=== PATIENT | male | born 1995 | race Caucasian/White ===

== ENCOUNTER 2016-10-12 12:55 | Emergency (ER) | payer OTHER ==
[2016-10-12 13:00] VITALS: BP 112/70; PULSE 77; TEMP 99.3; BMI 30.4
--- NOTE | 2016-10-12 13:09 | PDOC ---
History of Present Illness - General Chief Complaint: Sore Throat Stated Complaint: SORE THROAT Time Seen by Provider: 10/12/16 13:03 History Source: Patient Exam Limitations: No Limitations - History of Present Illness Initial Comments: 21 yo M no PMH presents with throat pain x2 days. He saw a physician yesterday who reassured him, however, then he researched on the internet and became concerned it may be strep throat. He denies any cough. No recent fevers. He states that his throat is painful and irritated. His ears hurt B/L. No difficulty breathing. Past History - Past Medical History Allergies/Adverse Reactions: Allergies Allergy/AdvReac Type Severity Reaction Status Date / Time No Known Allergies Allergy Verified 11/01/11 19:39 Home Medications: Ambulatory Orders No Home Medications 0 dose .ROUTE UTDICT 11/01/11 - Immunization History Immunization Up to Date: Yes - Psycho/Social/Smoking Cessation Hx Anxiety: No Suicidal Ideation: No Smoking Status: No Smoking History: Never smoked Number of Cigarettes Smoked Daily: 0 Hx Alcohol Use: Yes (OCCASIONAL) Drug/Substance Use Hx: No Substance Use Type: None Review of Systems - Review of Systems Able to Perform ROS?: Yes Comments:: GENERAL/CONSTITUTIONAL: No fever or chills. No weakness. HEAD, EYES, EARS, NOSE AND THROAT: No change in vision. No ear pain or discharge. +Sore throat. CARDIOVASCULAR: No chest pain or shortness of breath. RESPIRATORY: No cough, wheezing, or hemoptysis. GASTROINTESTINAL: No nausea, vomiting, diarrhea or constipation. GENITOURINARY: No dysuria, frequency, or change in urination. MUSCULOSKELETAL: No joint or muscle swelling or pain. No neck or back pain. SKIN: No rash NEUROLOGIC: No headache, vertigo, loss of consciousness, or change in strength/ sensation. ENDOCRINE: No increased thirst. No abnormal weight change. HEMATOLOGIC/LYMPHATIC: No anemia, easy bleeding, or history of blood clots. ALLERGIC/IMMUNOLOGIC: No hives or skin allergy. *Physical Exam - Vital Signs Last Vital Signs Temp Pulse Resp BP Pulse Ox 99.3 F 77 15 112/70 98 10/12/16 12:56 10/12/16 12:56 10/12/16 12:56 10/12/16 12:56 10/12/16 12:56 - Physical Exam Comments: GENERAL: Awake, alert, and fully oriented, in no acute distress HEAD: No signs of trauma EYES: PERRLA, EOMI, sclera anicteric, conjunctiva clear ENT: Auricles normal inspection, hearing grossly normal, nares patent, oropharynx erythematous without exudates. Slight bulging of the TMs B/L, clear fluid. No perforation, no erythema. Moist mucosa NECK: Normal ROM, supple. +Anterior cervical lymphadenopathy. No JVD or masses LUNGS: Breath sounds equal, clear to auscultation bilaterally. No wheezes, and no crackles HEART: Regular rate and rhythm, normal S1 and S2, no murmurs, rubs or gallops ABDOMEN: Soft, nontender, normoactive bowel sounds. No guarding, no rebound. No masses EXTREMITIES: Normal range of motion, no edema. No clubbing or cyanosis. No cords , erythema, or tenderness NEUROLOGICAL: Cranial nerves II through XII grossly intact. Normal speech, normal gait SKIN: Warm, Dry, normal turgor, no rashes or lesions noted. Medical Decision Making - Medical Decision Making Symptoms are likely viral. Patient only meets one of the centor criteria. Rapid strep negative. Will treat symptomatically. Culture pending. *DC/Admit/Observation/Transfer Diagnosis at time of Disposition: Viral pharyngitis - Discharge Dispostion Disposition: HOME Condition at time of disposition: Stable Admit: No
[2016-10-12] MEDS ORDERED: IBUPROFEN 600 MG TABLET (FP) PO ONE ×2 (13:13→13:28)
[2016-10-12] MEDS ORDERED: DEXAMETHASONE 4 MG TABLET (FP) PO ONE (14:06)
[2016-10-12] MEDS ORDERED: DEXAMETHASONE 4 MG TABLET (FP) ONE (14:11)
--- NOTE | 2016-10-16 16:09 | PDOC ---
Patient Follow-up (Call Back) - Post ED Follow - Up Condition at time of discharge: Stable Disposition at time of original discharge: HOME - Disposition Additional Instructions/Notes: Attempted to contact patient on his primary phone number, but there was a message that the number was not available. I contacted on his secondary contact (esvin Rin Brii) instructing them to call back the ED for abnormal lab results- positive strep culture. I have sent rx to his pharmacy already. Awaiting callback to let him know to pick it up.
== END 2016-10-12 14:17 | disposition home or self-care (01) ==
LOC: FER 12:55
DX: J02.8 Acute pharyngitis due to other specified organisms (principal); B97.89 Other viral agents as the cause of diseases classified elsewhere
CPT/HCPCS: 87070; 87077; 87430; 99281-25

== ENCOUNTER 2016-12-10 22:57 | Emergency (ER) | payer OTHER ==
[2016-12-10 23:10] VITALS: BP 149/87; PULSE 75; TEMP 98.2; BMI 30.4
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
[2016-12-10] MEDS ORDERED: DIPHTH,PERTUSS(ACELL),TET 0.5 ML DISP.SYRIN IM ONE (23:11)
[2016-12-10] MEDS ORDERED: KETOROLAC TROMETHAMINE 60 MG/2 ML VIAL IM ONE (23:11)
== END 2016-12-10 23:34 | disposition home or self-care (01) ==
LOC: FER 22:57
PROC: 2W2BX4Z Dressing of Left Upper Arm using Bandage (ICD-10-PCS; principal; 2016-12-10)
DX: T22.212A Burn of second degree of left forearm, initial encounter (principal); T31.0 Burns involving less than 10% of body surface; T79.9XXA Unspecified early complication of trauma, initial encounter; X08.8XXA Exposure to other specified smoke, fire and flames, initial encounter; Y93.G3 Activity, cooking and baking; Y92.000 Kitchen of unspecified non-institutional (private) residence as the place of occurrence of the external cause
CPT/HCPCS: 90715; 99281-25